=== PATIENT | female | born 1955 | race Caucasian/White ===

== ENCOUNTER 2016-08-17 13:20 | Outpatient (CLI) | payer OTHER | END 2016-08-17 13:21 | disposition home or self-care (01) | DX: R79.89 Other specified abnormal findings of blood chemistry (principal) ==

== ENCOUNTER 2016-12-28 11:34 | Outpatient (CLI) | payer OTHER ==
--- NOTE | 2016-12-31 16:10 | Mammography Report ---
DIGITAL SCREENING MAMMOGRAM: 12/28/2016 CLINICAL INDICATION: A 61-year-old nulliparous patient for screening. COMPARISON: 12/2015, 07/2014, 03/2013, 02/2012, 01/2011, 01/2010, 12/2008, 03/2007. TECHNIQUE: Routine CC and MLO projections were obtained of the breasts. FINDINGS: Scattered fibroglandular tissue is present within the breasts. There are no dominant eun s, suspicious microcalcifications, or secondary signs of malignancy. In comparison to the previous st udies, there are no significant changes. ASSESSMENT: NO MAMMOGRAPHIC EVIDENCE OF MALIGNANCY. NO SIGNIFICANT INTERVAL CHANGES. RECOMMENDATION: Screening mammography is recommended annually. BIRADS category 1 - negative. STANDARD QUALIFYING STATEMENTS 1. This examination was reviewed with the aid of Computed-Aided Detection (CAD). 2. A negative or benign imaging report should not delay biopsy if clinically suspicious findings are present. Consider surgical consultation if warranted. More than 5% of cancers are not identified by i maging. 3. Dense breasts may obscure an underlying neoplasm. JOB #: [id number] JOB #:[id number]
== END 2016-12-28 11:35 | disposition home or self-care (01) ==
LOC: DI.N 11:34
PROVIDERS: ATTEND Family Medicine
DX: Z12.31 Encounter for screening mammogram for malignant neoplasm of breast (principal)
CPT/HCPCS: 77067

== ENCOUNTER 2017-10-08 08:00 | Outpatient (CLI) | payer OTHER | END 2017-10-08 08:01 | disposition home or self-care (01) | LOC: LAB.R 08:00 | PROVIDERS: ATTEND Family Medicine | DX: L02.415 Cutaneous abscess of right lower limb (principal) | CPT/HCPCS: 87070; 87205 ==

== ENCOUNTER 2017-10-09 08:00 | Outpatient (CLI) | payer OTHER | END 2017-10-09 08:01 | LOC: LAB.WCP 08:00 | PROVIDERS: ATTEND Family Medicine | DX: L02.415 Cutaneous abscess of right lower limb (principal) | CPT/HCPCS: 36415; 84550 ==

== ENCOUNTER 2017-12-04 09:47 | Outpatient (CLI) | payer OTHER | END 2017-12-04 09:48 | LOC: LAB.WCP 09:47 | PROVIDERS: ATTEND Family Medicine | DX: L02.415 Cutaneous abscess of right lower limb (principal) | CPT/HCPCS: 87640 ==

== ENCOUNTER 2018-06-05 13:30 | Outpatient (CLI) | payer OTHER | END 2018-06-05 23:59 | disposition home or self-care (01) | LOC: LAB.WCP 13:30 | PROVIDERS: ATTEND Internal Medicine Gastroenterology | DX: R94.5 Abnormal results of liver function studies (principal) | CPT/HCPCS: 36415; 81599; 86704; 86706; 86708; 86803; 87340 ==